=== PATIENT | female | born 2000 | race Caucasian/White ===

== ENCOUNTER → 2020-05-24 | Outpatient (CLI) | payer OTHER | LOC: NM 13:55 | DX: R10.11 Right upper quadrant pain (principal); R93.2 Abnormal findings on diagnostic imaging of liver and biliary tract | CPT/HCPCS: 78226; A9537 ==

== ENCOUNTER → 2020-06-23 | Outpatient (CLI) | payer OTHER | LOC: CT 08:58 | DX: R07.9 Chest pain, unspecified (principal) | CPT/HCPCS: 71275; Q9967 ==